=== PATIENT | female | born 1950 | race Caucasian/White ===

== ENCOUNTER 2018-06-07 08:42 | Emergency (ER) | payer MEDICARE ==
[~2018-06-07] VITALS: Ht 170.2 cm; Wt 67.0 kg
[~2018-06-07 08:42] MED LIST: LOPRESSOR 550 MG/TAB PO; TAM75CAP PO
[2018-06-07 09:03] LABS: HEMATOCRIT 38.3 % (37.0-47.0); HEMOGLOBIN 12.8 g/dl (12.0-16.0); IMMATURE GRANULOCYTES 0.5 % (0.0-5.0); MEAN CELL VOLUME 88.5 fL CALC (80.0-100.0); MEAN CORPUSCULAR HGB 29.6 pG CALC (26.0-32.0); MEAN CORPUSCULAR HGB CONC 33.4 g/L CALC (32.0-36.0); NEUT# 10.01 thou/uL (2.00-7.15); RED BLOOD COUNT 4.33 mill/uL (4.20-5.60); RED CELL DISTRI WIDTH 12.9 % (11.5-15.5)
[2018-06-07 09:19] LABS: INTERNATIONAL NORMALIZED RATIO 1.1 RATIO (0.7-1.3); PROTHROMBIN TIME 11.6 SECONDS (9.0-12.5)
[2018-06-07 09:23] LABS: BUN 12 mg/dL (8-23); BUN/CREATININE RATIO 20 (12-20 (CALC)); CHLORIDE 99 mmol/l (95-108); CREATININE 0.6 mg/dL (0.5-1.0); GFR > 60 ML/MIN (>=60 (CALC)); GFR FOR AFR.AMER. > 60 ML/MIN (>=60 (CALC)); POTASSIUM 3.2 mmol/l (3.5-5.1); SODIUM 136 mmol/l (137-146)
[2018-06-07 09:25] LABS: ANION GAP 15 (6-22 (CALC)); CARBON DIOXIDE 25 mmol/l (22-30)
[2018-06-07] MEDS ORDERED: LOSARTAN POT50 MG PO (10:22)
[2018-06-07] MEDS ORDERED: SYNTHROID25 MCG PO (10:22)
[2018-06-07] MEDS ORDERED: OMEPRAZOLE10 MG PO (10:23)
[2018-06-07] MEDS ORDERED: TIZANIDINE2 MG PO (10:24)
[2018-06-07 10:40] VITALS: BP 166/117
== END 2018-06-07 10:41 | disposition short-term general hospital (02) ==
LOC: ED 08:42
PROVIDERS: Family Medicine
DX: R47.81 Slurred speech (principal); R20.2 Paresthesia of skin; I63.9 Cerebral infarction, unspecified; R29.810 Facial weakness; I10 Essential (primary) hypertension; R29.702 NIHSS score 2; I48.91 Unspecified atrial fibrillation
CPT/HCPCS: Q9967

== ENCOUNTER 2018-06-09 19:52 | Emergency (ER) | payer MEDICARE ==
[~2018-06-09] VITALS: Ht 170.2 cm; Wt 67.2 kg
[~2018-06-09 19:52] MED LIST changes: +LOSARTAN POT50 MG PO; +OMEPRAZOLE10 MG PO; +SYNTHROID25 MCG PO; +TIZANIDINE2 MG PO
[2018-06-09 20:16] LABS: GFR > 60 ML/MIN (>=60 (CALC)); GFR FOR AFR.AMER. > 60 ML/MIN (>=60 (CALC))
[2018-06-09 20:19] LABS: HEMATOCRIT 32.8 % (37.0-47.0); IMMATURE GRANULOCYTES 0.5 % (0.0-5.0); MEAN CELL VOLUME 88.2 fL CALC (80.0-100.0); MEAN CORPUSCULAR HGB 29.6 pG CALC (26.0-32.0); MEAN CORPUSCULAR HGB CONC 33.5 g/L CALC (32.0-36.0); NEUT# 8.45 thou/uL (2.00-7.15); RED BLOOD COUNT 3.72 mill/uL (4.20-5.60)
[2018-06-09 20:38] LABS: ALKALINE PHOSPHATASE 142 u/l (38-126); ANION GAP 14 (6-22 (CALC)); BILIRUBIN, TOTAL 0.5 mg/dL (0.0-1.4); BUN 12 mg/dL (8-23); BUN/CREATININE RATIO 22 (12-20 (CALC)); CARBON DIOXIDE 23 mmol/l (22-30); CHLORIDE 102 mmol/l (95-108); CREATININE 0.5 mg/dL (0.5-1.0); GFR > 60 ML/MIN (>=60 (CALC)); GFR FOR AFR.AMER. > 60 ML/MIN (>=60 (CALC)); POTASSIUM 3.7 mmol/l (3.5-5.1); SODIUM 135 mmol/l (137-146)
[2018-06-09 20:39] LABS: ACT PARTIAL THROMBO TIME 29.9 SECONDS (20.0-32.5)
[2018-06-09 20:40] LABS: ALBUMIN 3.3 g/dL (3.2-5.0); INTERNATIONAL NORMALIZED RATIO 1.5 RATIO (0.7-1.3); PROTHROMBIN TIME 15.2 SECONDS (9.0-12.5); SGOT/AST 57 u/l (9-36); TOTAL PROTEIN 6.4 g/dL (6.3-8.2)
[2018-06-09 20:50] LABS: MYOGLOBIN 87 ng/mL (0 - 62)
[2018-06-09] MEDS ORDERED: ELIQUIS5 MG PO (21:04)
[2018-06-09] MEDS ORDERED: ASPIRIN81 MG PO (21:05)
[2018-06-09] MEDS ORDERED: METFORMIN500 MG PO (21:06)
[2018-06-09] MEDS ORDERED: ATORVASTATIN CA40 MG PO (21:06)
[2018-06-09 21:23] VITALS: BP 157/62
== END 2018-06-09 21:34 | disposition home or self-care (01) ==
LOC: ED 19:52 → ED-I 20:02 → ED 20:02 → ED-I 20:50 → ED 21:34
PROVIDERS: Family Medicine
DX: G45.9 Transient cerebral ischemic attack, unspecified (principal); R94.31 Abnormal electrocardiogram [ECG] [EKG]
CPT/HCPCS: Q9967

== ENCOUNTER 2018-06-10 16:07 | Emergency (ER) | payer MEDICARE ==
[~2018-06-10] VITALS: Ht 170.2 cm; Wt 67.3 kg
[~2018-06-10 16:07] MED LIST changes: +ASPIRIN81 MG PO; +ATORVASTATIN CA40 MG PO; +ELIQUIS5 MG PO; +METFORMIN500 MG PO
[2018-06-10 16:26] LABS: HEMATOCRIT 35.5 % (37.0-47.0); HEMOGLOBIN 11.9 g/dl (12.0-16.0); IMMATURE GRANULOCYTES 0.4 % (0.0-5.0); MEAN CELL VOLUME 88.1 fL CALC (80.0-100.0); MEAN CORPUSCULAR HGB 29.5 pG CALC (26.0-32.0); MEAN CORPUSCULAR HGB CONC 33.5 g/L CALC (32.0-36.0); NEUT# 9.49 thou/uL (2.00-7.15); RED BLOOD COUNT 4.03 mill/uL (4.20-5.60)
[2018-06-10 16:27] LABS: GFR > 60 ML/MIN (>=60 (CALC)); GFR FOR AFR.AMER. > 60 ML/MIN (>=60 (CALC))
[2018-06-10 16:44] LABS: INTERNATIONAL NORMALIZED RATIO 1.2 RATIO (0.7-1.3); PROTHROMBIN TIME 12.7 SECONDS (9.0-12.5)
[2018-06-10 16:48] LABS: ANION GAP 14 (6-22 (CALC)); BUN 10 mg/dL (8-23); BUN/CREATININE RATIO 19 (12-20 (CALC)); CARBON DIOXIDE 22 mmol/l (22-30); CHLORIDE 101 mmol/l (95-108); CREATININE 0.5 mg/dL (0.5-1.0); GFR > 60 ML/MIN (>=60 (CALC)); GFR FOR AFR.AMER. > 60 ML/MIN (>=60 (CALC)); POTASSIUM 3.6 mmol/l (3.5-5.1); SODIUM 134 mmol/l (137-146)
[2018-06-10 18:25] VITALS: BP 166/79
== END 2018-06-10 18:30 | disposition home or self-care (01) ==
LOC: ED 16:07
PROVIDERS: Family Medicine
DX: R20.0 Anesthesia of skin (principal); R29.810 Facial weakness; R53.1 Weakness; I10 Essential (primary) hypertension; K21.9 Gastro-esophageal reflux disease without esophagitis; Z86.73 Personal history of transient ischemic attack (TIA), and cerebral infarction without residual deficits
CPT/HCPCS: Q9967

== ENCOUNTER 2018-07-05 07:40 | Emergency (ER) | payer MEDICARE ==
[~2018-07-05] VITALS: Ht 170.2 cm; Wt 80.0 kg
[2018-07-05] MEDS ORDERED: PERCOCET 5/325M1 TAB PO (08:23)
[2018-07-05] MEDS ORDERED: KEPPRA100 MG/ML PO (08:25)
[2018-07-05 08:35] LABS: HEMATOCRIT 31.3 % (37.0-47.0); HEMOGLOBIN 10.4 g/dl (12.0-16.0); IMMATURE GRANULOCYTES 0.7 % (0.0-5.0); MEAN CELL VOLUME 84.6 fL CALC (80.0-100.0); MEAN CORPUSCULAR HGB 28.1 pG CALC (26.0-32.0); MEAN CORPUSCULAR HGB CONC 33.2 g/L CALC (32.0-36.0); NEUT# 19.22 thou/uL (2.00-7.15); RED BLOOD COUNT 3.7 mill/uL (4.20-5.60); RED CELL DISTRI WIDTH 13.7 % (11.5-15.5)
[2018-07-05 08:52] LABS: INTERNATIONAL NORMALIZED RATIO 3.4 RATIO (0.7-1.3); PROTHROMBIN TIME 34.9 SECONDS (9.0-12.5)
[2018-07-05 08:53] LABS: ALKALINE PHOSPHATASE 389 u/l (38-126); ANION GAP 18 (6-22 (CALC)); BILIRUBIN, TOTAL 1.3 mg/dL (0.0-1.4); BUN 14 mg/dL (8-23); BUN/CREATININE RATIO 27 (12-20 (CALC)); CARBON DIOXIDE 24 mmol/l (22-30); CHLORIDE 97 mmol/l (95-108); CREATININE 0.5 mg/dL (0.5-1.0); GFR > 60 ML/MIN (>=60 (CALC)); GFR FOR AFR.AMER. > 60 ML/MIN (>=60 (CALC)); POTASSIUM 3.4 mmol/l (3.5-5.1); SGOT/AST 44 u/l (9-36); SODIUM 136 mmol/l (137-146); TOTAL PROTEIN 6.2 g/dL (6.3-8.2)
[2018-07-05 10:00] VITALS: BP 135/67
== END 2018-07-05 10:00 | disposition short-term general hospital (02) ==
LOC: ED 07:40
PROVIDERS: Emergency Medicine
DX: I70.221 Atherosclerosis of native arteries of extremities with rest pain, right leg (principal); I10 Essential (primary) hypertension; K21.9 Gastro-esophageal reflux disease without esophagitis; E78.00 Pure hypercholesterolemia, unspecified; Z86.73 Personal history of transient ischemic attack (TIA), and cerebral infarction without residual deficits